=== PATIENT | male | born 1955 | race Caucasian/White ===

== ENCOUNTER → 2016-10-16 | Outpatient (CLI) | payer BC ==
[~2016-10-16] MED LIST: ASPEC325 PO; CHOL100010 PO; CLB200 PO; CLOP1TAB15 PO; COEN50CA22 PO; HYDR-5688 PO; MULT-506 PO; OMEG10007 PO; RANI300T2 PO; SIMV20TA2 PO; TRAM-10 PO; tumeric PO
--- NOTE | 2016-10-19 14:39 | POLYSOMNOGRAPH REPORT ---
CLINICAL DATA: This 61-year-old male with BMI of 29.[address] Carrion and myself for evaluation of possible sleep apnea. The patient has a history of loud snoring, witnessed apnea, and cerebrovascular disease. On the evening of 10/16/2016, a home sleep apnea test was performed using a [employer] type 3 monitor. RECORDING RESULTS: Total recording time was 10 hours. The patient's estimated sleep time was 8.7 hours. RESPIRATORY DATA: Moderate sleep apnea was documented. The ZACHARY was 21.7. There were 66 obstructive, 4 mixed and 1 central apneic episodes. There were 117 hypopneic episodes. The longest respiratory event recorded was 59 seconds. OXIMETRY DATA: Nocturnal hypoxemia was seen. Oxygen bobby was 75%. Mean saturation is 93%. Time below 89% was 29 minutes. HEART RATE DATA: Heart rates ranged from 52-73 beats per minute. SNORING DATA: Snoring was recorded throughout the night. IMPRESSION: Moderate sleep apnea with nocturnal hypoxemia. RECOMMENDATIONS: The patient would benefit from a repeat sleep study with CPAP. MICH
== END | disposition home or self-care (01) ==
LOC: C.NEUR 08:55
PROVIDERS: ATTEND Internal Medicine Pulmonary Disease
DX: R06.83 Snoring (principal); G45.9 Transient cerebral ischemic attack, unspecified; R06.81 Apnea, not elsewhere classified

== ENCOUNTER → 2016-10-24 | Outpatient (CLI) | payer BC ==
[~2016-10-24] VITALS: Ht 175.3 cm; Wt 95.5 kg
[2016-10-24 16:47] VITALS: BP 113/77; PULSE 94; Ht 175.3 cm; Wt 95.5 kg
== END | disposition home or self-care (01) ==
LOC: C.NEUR 15:30
PROVIDERS: ATTEND Internal Medicine Pulmonary Disease
DX: G47.33 Obstructive sleep apnea (adult) (pediatric) (principal); G45.9 Transient cerebral ischemic attack, unspecified; R06.83 Snoring

== ENCOUNTER → 2017-08-24 | Outpatient (CLI) | payer BC ==
[~2017-08-24] VITALS: Ht 175.3 cm; Wt 90.4 kg
[2017-08-24 14:51] VITALS: BP 114/71; PULSE 76; Ht 175.3 cm; Wt 90.4 kg
== END | disposition home or self-care (01) ==
LOC: C.NEUR 14:42
PROVIDERS: ATTEND Internal Medicine Pulmonary Disease
DX: G47.33 Obstructive sleep apnea (adult) (pediatric) (principal); G45.9 Transient cerebral ischemic attack, unspecified

== ENCOUNTER → 2017-10-26 | Outpatient (CLI) | payer BC, OTHER ==
[~2017-10-26] VITALS: Ht 175.3 cm; Wt 92.9 kg
[2017-10-26 14:33] VITALS: BP 114/77; PULSE 85; Ht 175.3 cm; Wt 92.9 kg
== END | disposition home or self-care (01) ==
LOC: C.NEUR 13:26
PROVIDERS: ATTEND Internal Medicine Pulmonary Disease
DX: G47.33 Obstructive sleep apnea (adult) (pediatric) (principal); R06.81 Apnea, not elsewhere classified; G45.9 Transient cerebral ischemic attack, unspecified; Z88.8 Allergy status to other drugs, medicaments and biological substances; Z91.048 Other nonmedicinal substance allergy status